=== PATIENT | male | born 1980 | race Caucasian/White ===

== ENCOUNTER 2024-09-09 14:39 | Emergency (ER) | payer OTHER, BC ==
[~2024-09-09] VITALS: Ht 177.8 cm; Wt 85.0 kg
[2024-09-09] MEDS ORDERED: ONDANSETRON 4 MG TAB ODT SL ONE (16:30)
[2024-09-09] MEDS ORDERED: DIPHTH,PERTUSS(ACELL),TET VAC 0.5 ML SYRINGE IM ONE (16:30)
[2024-09-09] MEDS ORDERED: OXYCODONE/APAP 5/325 TAB PO ONE (16:30)
[2024-09-09] MEDS ORDERED: CEFAZOLIN SODIUM 2 GM/20 ML SYR IV ONE (19:00)
[2024-09-09 21:09] LABS: BASOPHILS 0.4 % (0-2); EOSINOPHILS 0.3 % (0-6); HEMATOCRIT 42.5 % (35.0-50.0); HEMOGLOBIN 14.7 g/dL (12.0-18.0); LYMPHOCYTES 13.9 % (24-44); MCH 28.4 (27-36); MCHC 34.7 g/dl (30-36); MCV 81.8 fl (81-99); NEUTROPHILS 76.4 % (39-80); PLATELET COUNT 273 K/uL (140-440); RBC 5.19 M/ul (4.3-5.7); RDW 13.1 (10.5-15.0)
[2024-09-09 21:21] LABS: INR 1.02 (0.80-1.30); PROTIME 12.8 Sec (11.2-14.2)
[2024-09-09 21:27] LABS: ALBUMIN 3.9 g/dL (3.4-5.0); ALBUMIN/GLOBULIN RATIO 1.18 (1.1-2.4); ANION GAP 10.9 (7-21); BILIRUBIN, TOTAL 0.3 mg/dL (0.2-1.0); BUN/CREATININE RATIO 11.81 (6.0-28.6); CALCIUM 8.4 mg/dL (8.5-10.1); CREATININE, SERUM 1.27 mg/dL (0.70-1.30); POTASSIUM 3.9 mmol/L (3.5-5.1); PROTEIN, TOTAL 7.2 g/dL (6.4-8.2)
[2024-09-09] MEDS ORDERED: PERCOCET 5-3251 EACH PO (21:40)
[2024-09-09] MEDS ORDERED: CEPHALEXIN500 M1 PO (21:40)
[2024-09-09] MEDS ORDERED: OXYCODONE HCL 5 MG TAB PO ONE (22:15)
[2024-09-09] MEDS ORDERED: KETOROLAC TROMETHAMINE 30 MG/ML VIAL IV ONE (22:15)
[2024-09-10] MEDS ORDERED: CEFAZOLIN SODIUM 2 GM/20 ML SYR IV ONE ×2 (01:30→07:30)
[2024-09-10] MEDS ORDERED: LACTATED RINGER'S 1,000 ML IV SCH (07:30)
[2024-09-10] MEDS ORDERED: HYDROmorphone HCL 1 MG/ML SYR IV PRN ×2 (07:45→11:15)
[2024-09-10 12:57] VITALS: BP 127/82
[2024-09-10] MEDS ORDERED: ondansetron HCL 4 MG/2 ML VIAL IV ONE (13:00)
[2024-09-10] MEDS ORDERED: CEFAZOLIN SODIUM 2 GM/20 ML SYR IV SCH (15:30)
== END 2024-09-10 12:57 | disposition short-term general hospital (02) ==
LOC: ED 14:39
PROVIDERS: Emergency Medicine
DX: S92.001B Unspecified fracture of right calcaneus, initial encounter for open fracture (principal); S92.131 Displaced fracture of posterior process of right talus; W18.30XA Fall on same level, unspecified, initial encounter
CPT/HCPCS: 29515; 36415; 73610; 73630; 73700; 80053; 85025; 85610; 90471; 90715; 99285-25; A9270; J0690; J1171; J1885; J2405; J7121

== ENCOUNTER 2025-01-14 11:48 | Day surgery (SDC) | payer BC ==
[~2025-01-14] VITALS: Ht 177.8 cm; Wt 86.5 kg
[~2025-01-14 11:48] MED LIST: ALLEGRA ALLERGY60 MG PO; CEPHALEXIN500 M1 PO; DAILY VALUE1 EACH PO; DICLOFENAC SODI75 MG PO; GABAPENTIN600 MG PO; IBLOOD GLUCOSE TEST STRIP 1 EA TEST VI PRN; LACTATED RINGER'S 1,000 ML IV SCH; LIDOCAINE HCL 1% 5 ML SDV INJ ONE; MIDAZOLAM HCL 5 MG/5 ML VIAL IV PRN; OMEPRAZOLE20 MG PO; OXYCODONE HCL5 MG PO; PERCOCET 5-3251 EACH PO; fentaNYL citrate 100 MCG/2 ML VIAL IV PRN
[2025-01-14 12:05] VITALS: BP 140/90
[2025-01-14] MEDS ORDERED: IBUPROFEN800 MG PO (12:09)
[2025-01-14] MEDS ORDERED: MIDAZOLAM HCL 5 MG/5 ML VIAL ONE (12:44)
[2025-01-14] MEDS ORDERED: fentaNYL citrate 100 MCG/2 ML VIAL ONE (12:44)
--- NOTE | 2025-01-14 13:32 | NUR ---
01/14/25 1332 Veronica Youssef 1327-PATIENT ARRIVED TO PACU ON 2L NC RR EVEN. PATIENT LAYING LEFT LATERAL DROWSY BUT AWAKE DENIES PAIN OR NAUSEA. ABDOMEN SOFT. IVF INFUSING. SR HR 60'S. PATIENT ORIENTED TO PACU AND ENCOURAGED TO PASS GAS 1332-PATIENT SLEEPING 2L NC 99% RR EVEN.
[2025-01-14 14:11] VITALS: BP 134/94
--- NOTE | 2025-01-15 14:32 | OR ---
[facility] [address], [place] [address] Signed DATE OF OPERATION: 01/14/2025 SURGEON: Marie Urbina MD PREOPERATIVE DIAGNOSIS: Episodic rectal bleeding (last episode eight months ago). POSTOPERATIVE DIAGNOSIS: Internal hemorrhoids, no other abnormality. PROCEDURE: Total colonoscopy to cecum. ANESTHESIA: Intravenous sedation, fentanyl 150 mcg, and Versed 10 mg. INDICATION: This 44-year-old white man is a patient of Dr. Pillo Connor. He has had episodes of bright red rectal bleeding, which have been painless. He began having bleeding last March and additional episodes in April. He has no family history of colon cancer and no pain on defecation. He has never had colonoscopy in the past. He is admitted at this time to undergo colonoscopy not only for screening for polyp disease and so forth, but also to assess potential cause of rectal bleeding. He understands the risk of bleeding, infection, and perforation related to colonoscopy and wished to proceed. FINDINGS: The prep was excellent. Complete colonoscopy was undertaken of the cecum with full visualization of the ileocecal valve and appendiceal orifice. There was no evidence of polyps, diverticular formation, or colitis, but clearly he had internal hemorrhoidal changes without sign of active bleeding at this time. DESCRIPTION OF PROCEDURE: The patient was brought to the endoscopy suite and placed in lateral decubitus position, given intravenous sedation to the point of slurred speech and nystagmus. Digital rectal examination was normal. An Olympus video colonoscope was passed in the rectum and manipulated throughout the colon ultimately intubating the cecum itself. The ileocecal valve and appendiceal orifice were normal. Scope was withdrawn from that point and examination throughout showed no sign of abnormality until retroflexed view of the rectum where internal Electronically Signed By: MARIE URBINA MD 01/15/25 1432 PATIENT NAME: STIVEN CONNOR OPERATIVE REPORT DATE OF : 78 REPORT #: [id number] PHYSICIAN: MARIE URBINA MD PCP: KAILEY CONNOR MD REPORT IS CONFIDENTIAL AND NOT TO BE RELEASED WITHOUT AUTHORIZATION [facility] [address], [place] [address] Signed hemorrhoidal changes were noted. There was no sign of active bleeding or recent bleeding. Scope was straightened, withdrawn, removed and the patient was taken to recovery room in good condition. CONCLUDING DIAGNOSES: Most likely, his rectal bleeding was related to hemorrhoidal disease. PLAN: Since he does not have any recent rectal bleeding, I would not recommend hemorrhoidal banding at this time. However, if he should have recurrent bleeding, but certainly recommend in-office painless hemorrhoidal banding procedure. In the meantime, a high-fiber diet may be curative to this problem or if not possible, fiber supplement such as Metamucil or Citrucel. The patient will return to the ongoing care of Dr. Pillo Connor in the meantime. MD MISTI Alcantara/RUBÉN /[id number] cc: Kailey Connor MD Copies: KAILEY CONNOR MD ~ Electronically Signed By: MARIE URBINA MD 01/15/25 1432 PATIENT NAME: STIVEN CONNOR OPERATIVE REPORT DATE OF : 78 REPORT #: [id number] PHYSICIAN: MARIE URBINA MD PCP: KAILEY CONNOR MD REPORT IS CONFIDENTIAL AND NOT TO BE RELEASED WITHOUT AUTHORIZATION
== END 2025-01-14 14:15 | disposition home or self-care (01) ==
LOC: DS 11:48
PROVIDERS: ATTEND Surgery
PROC: 0DJD8ZZ Inspection of Lower Intestinal Tract, Via Natural or Artificial Opening Endoscopic (ICD-10-PCS; principal; 2025-01-14 13:00)
DX: Z12.11 Encounter for screening for malignant neoplasm of colon (principal); K64.8 Other hemorrhoids; K21.9 Gastro-esophageal reflux disease without esophagitis; Z79.899 Other long term (current) drug therapy; Z90.49 Acquired absence of other specified parts of digestive tract
CPT/HCPCS: 99153; G0500; J2250; J3010; J7121